=== PATIENT | female | born 1960 | race Two or more races ===

== ENCOUNTER 2016-12-26 12:02 | Emergency (ER) | payer OTHER ==
[2016-12-26 12:23] VITALS: BP 152/86; PULSE 90; TEMP 98.2; BMI 29.7
[2016-12-26] MEDS ORDERED: IBUPROFEN 400 MG TABLET (FP) PO ONE ×2 (14:01→14:02)
[2016-12-26] MEDS ORDERED: AMOX TR/POT CLAV 875MG/125MG TABLETS (FP) PO ONE (14:12)
--- NOTE | 2016-12-26 14:12 | PDOC ---
[id number] 4d RT EAR PAIN, HEADACHES Time Seen by Provider: 12/26/16 13:53 - History of Present Illness Initial Comments: 12/26/16 14:01 CHIEF COMPLAINT: ear/jaw pain HISTORY OF PRESENT ILLNESS: 56 yo F with hx of gastritis presents to fast track with R ear/jaw pain x 2 days. Patient denies fever, chills, nausea, vomiting, diarrhea. PAST MEDICAL HISTORY: Denies past medical history FAMILY HISTORY: Denies SOCIAL HISTORY:Denies tobacco, alcohol, illicit drug use. SURGICAL HISTORY: Denies ALLERGIES: No known drug allergies REVIEW OF SYSTEMS General/Constitutional: Denies fever or chills. Denies weakness, weight change. HEENT: Right ear pain. Denies change in vision. Denies discharge. Denies sore throat. Cardiovascular: Denies chest pain or shortness of breath. Respiratory: Denies cough, wheezing, or hemoptysis. Gastrointestinal: Denies nausea, vomiting, diarrhea or constipation. Denies rectal bleeding. Genitourinary: Denies dysuria, frequency, or change in urination. Musculoskeletal: Denies joint or muscle swelling or pain. Denies neck or back pain. Skin and breasts: Denies rash or easy bruising. Neurologic: Denies headache, vertigo, loss of consciousness, or loss of sensation. PHYSICAL EXAM General Appearance: Well-appearing, appropriately dressed. No apparent distress , no intoxication. HEENT: Markedly tender and edematous R auditory canal, TM not visualized. Tenderness posterior to R ear and to R mastoid. No uvular or tonsilar swelling. EOMI, PERRLA, normal ENT inspection, normal voice, TMs normal, pharynx normal. No conjunctival pallor. No photophobia, scleral icterus. Neck: Anterior cervical lymphandenopathy. Supple. Trachea midline. No tenderness, rigidity, carotid bruit, stridor. Respiratory/Chest: Lungs CTAB. Cardiovascular: RRR. S1, S2. Musculoskeletal/Extremities: Normal inspection. FROM of all extremities, normal capillary refill. Pelvis Stable. No CVA tenderness. No tenderness to extremities, pedal edema, swelling, erythema or deformity. Integumentary: Appropriate color, dry, warm. No cyanosis, erythema, jaundice or rash Neurologic: therapeutic recreation leader II-XII intact. Fully oriented, alert. Appropriate mood/affect. Motor strength 5/5. No appreciable EOM palsy, facial droop or sensory deficit. Past History - Past Medical History Allergies/Adverse Reactions: Allergies Allergy/AdvReac Type Severity Reaction Status Date / Time No Known Allergies Allergy Verified 12/26/16 12:20 Home Medications: Ambulatory Orders Amoxicillin/Potassium Clav [Augmentin 875-125 Tablet] 1 each PO BID #20 tablet 12/26/16 Ibuprofen 800 mg PO TID PRN #15 tablet 12/26/16 GI Disorders: Yes (gerd) Other medical history: ARTHRITIS - Psycho/Social/Smoking Cessation Hx Anxiety: No Suicidal Ideation: No Smoking Status: Yes Smoking History: Former smoker Have you smoked in the past 12 months: No Number of Cigarettes Smoked Daily: 0 If you are a former smoker, when did you quit?: 1999 Information on smoking cessation initiated: No Hx Alcohol Use: No Drug/Substance Use Hx: No Substance Use Type: None *Physical Exam - Vital Signs Last Vital Signs Temp Pulse Resp BP Pulse Ox 98.2 F 90 20 152/86 96 12/26/16 12:20 12/26/16 12:20 12/26/16 12:20 12/26/16 12:20 12/26/16 12:20 Medical Decision Making - Medical Decision Making 12/26/16 14:05 56 yo F with hx of gastritis presents to fast track with R ear/jaw pain x 2 days. Clinical presentation concerning of mastoiditis. Patient is afebrile and has not reported any fever. No fluctuance or crepitus to affected region, swollen R anterior cervical lymph nodes with edematous R auditory canal. -800 mg ibuprofen po Augmentin rx sent to pharm. Advised patient to take medications as prescribed and follow up with primary care doctor in TWO days. Advised patient of signs and symptoms for return to ER ; patient verbalized understanding and agrees to plan. *DC/Admit/Observation/Transfer Diagnosis at time of Disposition: Mastoiditis of right side Otitis media Qualifiers: Otitis media type: other nonsuppurative Laterality: right Chronicity: acute Recurrence: not specified Qualified Code(s): H65.191 - Other acute nonsuppurative otitis media, right ear - Discharge Dispostion Disposition: HOME Condition at time of disposition: Stable Admit: No - Prescriptions Prescriptions: Amoxicillin/Potassium Clav [Augmentin 875-125 Tablet] 1 each PO BID #20 tablet Ibuprofen 800 mg PO TID PRN #15 tablet PRN Reason: Pain - Referrals Referrals: Leon Franco MD [Primary Care Provider] - - Patient Instructions Printed Discharge Instructions: DI for Mastoiditis-Adult, Middle Ear Infection Additional Instructions: Please take medications as prescribed and follow up with your primary care doctor in TWO days. If you experience fever, nausea, vomiting, diarrhea, headache, difficulty swallowing, speaking, or breathing or have any new or worsening symptoms, please return to the ER immediatley.
[2016-12-26] MEDS ORDERED: AMOX TR/POT CLAV 875MG/125MG TABLETS (FP) ONE (14:18)
== END 2016-12-26 14:36 | disposition home or self-care (01) ==
LOC: JERFT 12:02
DX: H70.891 Other mastoiditis and related conditions, right ear (principal); H65.191 Other acute nonsuppurative otitis media, right ear
CPT/HCPCS: 99281-25

== ENCOUNTER 2017-06-18 12:19 | Emergency (ER) | payer OTHER ==
[2017-06-18 12:34] VITALS: BP 138/80; PULSE 90; TEMP 97.9; BMI 31.8
[2017-06-18] MEDS ORDERED: diphenhydrAMINE HCL 25 MG CAPSULE (FP) PO ONE ×2 (13:29→13:34)
--- NOTE | 2017-06-18 13:29 | PDOC ---
History of Present Illness - General Chief Complaint: Bite Stated Complaint: BITE Time Seen by Provider: 06/18/17 13:11 History Source: Patient Exam Limitations: No Limitations - History of Present Illness Initial Comments: 06/18/17 13:36 Chief complaint:rash to rt. hand, rt upper arm, rt. foot, chest, rt. anterior lower leg very itchy History of Present Illness: She is a 57-year-old female with a history of GERD and hyperlipidemia here today with a rash that is pruritic on her right hand and right foot right lower leg chest and right upper arm since going fishing with her 2 weeks ago. Patient reports that he also has a rash since that day and was he was told that he had poison sumac. Patient denies any difficulty breathing or swallowing. Timing/Duration: getting worse (for 2 weeks ) Severity: moderate Associated Symptoms: reports: rash (pruritic rash rt. arm, hand, rt. leg, chest) Past History - Past Medical History Allergies/Adverse Reactions: Allergies Allergy/AdvReac Type Severity Reaction Status Date / Time No Known Allergies Allergy Verified 06/18/17 12:31 Home Medications: Ambulatory Orders Amoxicillin/Potassium Clav [Augmentin 875-125 Tablet] 1 each PO BID #20 tablet 12/26/16 Ibuprofen 800 mg PO TID PRN #15 tablet 12/26/16 GI Disorders: Yes (gerd) Hypercholesterolemia: Yes - Immunization History Immunization Up to Date: Yes - Psycho/Social/Smoking Cessation Hx Anxiety: No Suicidal Ideation: No Smoking Status: Yes Smoking History: Former smoker Have you smoked in the past 12 months: No Number of Cigarettes Smoked Daily: 0 If you are a former smoker, when did you quit?: 1999 Information on smoking cessation initiated: No Hx Alcohol Use: No Drug/Substance Use Hx: No Substance Use Type: None Review of Systems - Review of Systems Able to Perform ROS?: Yes Constitutional: No: Symptoms Reported HEENTM: No: Symptoms Reported Respiratory: No: Symptoms reported Cardiac (ROS): No: Symptoms Reported ABD/GI: No: Symptoms Reported : No: Symptoms Reported Musculoskeletal: No: Symptoms Reported Integumentary: Yes: Pruritus, Rash (rt. upper arm 2 areas of erythema, rt. hand , rt. foot, chest, rt. anterior lower leg with crusted weeping area ) Neurological: No: Symptoms reported *Physical Exam - Vital Signs Last Vital Signs Temp Pulse Resp BP Pulse Ox 97.9 F 90 16 138/80 97 06/18/17 12:30 06/18/17 12:30 06/18/17 12:30 06/18/17 12:30 06/18/17 12:30 - Physical Exam General Appearance: Yes: Appropriately Dressed Respiratory/Chest: positive: Lungs Clear, Normal Breath Sounds. negative: Chest Tender, Respiratory Distress Cardiovascular: positive: Regular Rhythm, Regular Rate, S1, S2 Integumentary: positive: Rash (areas of erythema, rt. hand, rt. foot, chest, rt. anterior lower leg with crusted weeping area in center non linear) Neurologic: positive: Alert, Normal Response, Responsive Medical Decision Making - Medical Decision Making 06/18/17 13:40 She is a 57-year-old female with a history of GERD and hyperlipidemia here today with a rash that is pruritic on her right hand and right foot right lower leg chest and right upper arm since going fishing with her 2 weeks ago. Patient reports that he also has a rash since that day and was he was told that he had poison sumac. Patient denies any difficulty breathing or swallowing. Poison [place] rash PLAN: benadryl 25 mg po now than as directed by warp drawer kenalog 40 mg IM now *DC/Admit/Observation/Transfer Diagnosis at time of Disposition: Poison sumac - Discharge Dispostion Disposition: HOME Condition at time of disposition: Stable - Referrals Referrals: Leon Franco MD [Primary Care Provider] - Jayesh Apple [Non Staff, Medical] - - Patient Instructions Additional Instructions: You may apply calamine lotion to rash Follow-up with airplane cleaner Dr. Apple Take Benadryl as needed as directed by warp drawer for itchiness Return to emergency room if any difficulty breathing or swallowing Patient voiced understanding of discharge instructions and all questions were answered
[2017-06-18] MEDS ORDERED: TRIAMCINOLONE ACET 40MG/1ML VIAL IM ONE (13:32)
[2017-06-18] MEDS ORDERED: TRIAMCINOLONE ACET 40MG/1ML VIAL ONE (13:34)
== END 2017-06-18 13:56 | disposition home or self-care (01) ==
LOC: JERFT 12:19
PROC: 3E0233Z Introduction of Anti-inflammatory into Muscle, Percutaneous Approach (ICD-10-PCS; principal; 2017-06-18)
DX: L23.7 Allergic contact dermatitis due to plants, except food (principal); K21.9 Gastro-esophageal reflux disease without esophagitis; E78.5 Hyperlipidemia, unspecified
CPT/HCPCS: 96372; 99281-25

== ENCOUNTER 2018-02-24 12:07 | Emergency (ER) | payer OTHER ==
[2018-02-24 12:22] VITALS: BP 152/80; PULSE 80; TEMP 98.2; BMI 33.6
[2018-02-24] MEDS ORDERED: KETOROLAC TROMETHAMINE 60 MG/2 ML VIAL IM ONE (13:02)
[2018-02-24] MEDS ORDERED: KETOROLAC TROMETHAMINE 60 MG/2 ML VIAL ONE (13:05)
--- NOTE | 2018-02-24 13:05 | PDOC ---
History of Present Illness - General Chief Complaint: Back Pain Stated Complaint: BACK PAIN Time Seen by Provider: 02/24/18 12:54 History Source: Patient Exam Limitations: No Limitations - History of Present Illness Initial Comments: 02/24/18 13:03 CHIEF COMPLAINT: [Lower back pain] HISTORY OF PRESENT ILLNESS: 57-year-old female, no significant medical history currently on no medication presents for generalized lower back pain. Pain started after carrying groceries up the steps. Denies any,. Attempted to take Tylenol and one Aleve with no resolved.,[ Nonradiating pain, no neurosensory deficits, no bowel or bladder difficulty incontinence or urinary retention, no saddle anesthesia, no footdrop. No history of IVDU or history of cancer. ] REVIEW OF SYSTEMS: GENERAL: Afebrile, denies any weakness RESPIRATORY: No cough, wheezing, or hemoptysis. CARDIAC: No chest pain or shortness of breath MUSCULOSKELETAL: Pain to generalized lower back. No point tenderness. Pain worse on [right than left. ] SKIN : No erythema, no bruising, no deformity. GI/: Denies any abdominal pain, no urinary difficulty, incontinence or urinary retention. RECTAL: Denies any difficulty this A.m. NEUROLOGICAL: Denies any numbness or tingling. No neurosensory deficits. PHYSICAL EXAM: GENERAL: The patient is awake, alert, and fully oriented, in no acute distress. RESPIRATORY: Lungs clear bilaterally, no rhonchi wheezes or crackles CARDIAC: S1-S2 audible, no murmur rub or gallop MUSCULOSKELETAL: Pain to generalized lower back, nonradiating, no tingling or sensory deficit. Less than 2 second cap refill, +4 popliteal and pedal pulses. No CVA tenderness. GI/: Abdomen soft, nontender, nondistended. No rebound tenderness. No masses palpable. MUSCULOSKELETAL: No spinal point tenderness. Normal reflexive and no deficits to sensation or strength. RECTAL: [Deferred patient with no neurological findings] SKIN: Warm, Dry, normal turgor, no erythema, no edema no bruising. Past History - Past Medical History Allergies/Adverse Reactions: Allergies Allergy/AdvReac Type Severity Reaction Status Date / Time No Known Allergies Allergy Verified 02/24/18 12:15 Home Medications: Ambulatory Orders Cyclobenzaprine HCl [Flexeril 10 mg] 10 mg PO BID PRN #20 tablet 04/08/18 Naproxen [Naprosyn -] 500 mg PO BID #20 tablet 02/24/18 COPD: No GI Disorders: Yes (gerd) Hypercholesterolemia: Yes Other medical history: pinched nerve on back - Immunization History Immunization Up to Date: Yes - Suicide/Smoking/Psychosocial Hx Smoking Status: Yes Smoking History: Former smoker Have you smoked in the past 12 months: No Number of Cigarettes Smoked Daily: 0 If you are a former smoker, when did you quit?: 2009 Information on smoking cessation initiated: No Hx Alcohol Use: No Drug/Substance Use Hx: No Substance Use Type: None *Physical Exam - Vital Signs Last Vital Signs Temp Pulse Resp BP Pulse Ox 98.2 F 80 18 152/80 97 02/24/18 12:13 02/24/18 12:13 02/24/18 12:13 02/24/18 12:13 02/24/18 12:13 Medical Decision Making - Medical Decision Making 02/24/18 13:05 A/P: Patient with generalized lower back pain will send urinalysis, Toradol 60 mg IM times one. She reports relief of pain after Toradol will DC on anti-inflammatories, follow- up with orthopedics pain persists no heavy lifting greater than 10 pounds. *DC/Admit/Observation/Transfer Diagnosis at time of Disposition: Low back pain Qualifiers: Chronicity: acute Back pain laterality: bilateral Sciatica presence: without sciatica Qualified Code(s): M54.5 - Low back pain - Discharge Dispostion Disposition: HOME Condition at time of disposition: Stable Admit: No - Prescriptions Prescriptions: Cyclobenzaprine HCl [Flexeril 10 mg] 10 mg PO BID PRN #20 tablet PRN Reason: Pain Naproxen [Naprosyn -] 500 mg PO BID #20 tablet - Referrals Referrals: Desmond Brooks MD [Staff Physician] - - Patient Instructions Printed Discharge Instructions: DI for Low Back Pain Additional Instructions: 1. Please return to the emergency department with any numbness, tingling, weakness, numbness or tingling to groin or legs, or loss of bowel or bladder function. 2. Use pain medication as ordered. 3. Please is to followup in the office of Dr. Brooks for evaluation within a week if no improvement. 4. Ice or heat 5. Refrain from lifting anything above 10 pounds, until pain resolved. - Post Discharge Activity Forms/Work/School Notes: Back to Work
[2018-02-24 13:29] LABS: URINE APPEARANCE CLEAR; URINE BILIRUBIN NEGATIVE (<2.0 mg/dL); URINE BLOOD NEGATIVE (NEGATIVE); URINE COLOR YELLOW; URINE GLUCOSE (UA) NEGATIVE (NEGATIVE); URINE KETONE NEGATIVE (NEGATIVE); URINE LEUK ESTERASE NEGATIVE (NEGATIVE); URINE NITRITE NEGATIVE (NEGATIVE); URINE PROTEIN NEGATIVE (NEGATIVE); URINE UROBILINOGEN NEGATIVE mg/dL (0.2-1.0)
== END 2018-02-24 14:11 | disposition home or self-care (01) ==
LOC: JERFT 12:07
PROC: 3E0233Z Introduction of Anti-inflammatory into Muscle, Percutaneous Approach (ICD-10-PCS; principal; 2018-02-24)
DX: M54.5 Low back pain (principal); X50.0XXA Overexertion from strenuous movement or load, initial encounter; Y93.89 Activity, other specified; Y92.89 Other specified places as the place of occurrence of the external cause; Y99.8 Other external cause status; E78.00 Pure hypercholesterolemia, unspecified; Z87.19 Personal history of other diseases of the digestive system
CPT/HCPCS: 81003; 96372; 99281-25

== ENCOUNTER 2021-08-01 21:56 | Emergency (ER) | payer OTHER ==
[2021-08-01 22:00] VITALS: BP 156/87; PULSE 77; TEMP 98.5; BMI 31.5
[2021-08-01] MEDS ORDERED: ACETAMINOPHEN 325 MG TABLET (FP) PO ONE (22:57)
[2021-08-01] MEDS ORDERED: LIDOCAINE 5% TOPICAL PATCH TP ONE (22:57)
[2021-08-01] MEDS ORDERED: LIDOCAINE 5% TOPICAL PATCH ONE (23:06)
[2021-08-01] MEDS ORDERED: ACETAMINOPHEN 325 MG TABLET (FP) ONE (23:07)
[2021-08-01 23:14] LABS: EOS % 1.4 % (0-4.5); HEMATOCRIT 39.9 % (32.4-45.2); HEMOGLOBIN 13.8 GM/dL (10.7-15.3); LYMPH % 40.4 % (8-40); MCH 27.4 pg (25.7-33.7); MCHC 34.5 g/dl (32.0-36.0); MEAN CELL VOLUME 79.3 fl (80-96); MEAN PLT VOLUME 7.7 fl (7.5-11.1); MONO % 6.9 % (3.8-10.2); NEUT % 50.3 % (42.8-82.8); PLATELET COUNT 277 10^3/uL (134-434); RBC 5.03 M/mm3 (3.60-5.2); RDW 13.5 % (11.6-15.6); WHITE BLOOD COUNT 10.9 K/mm3 (4.0-10.0)
[2021-08-01 23:34] LABS: CHLORIDE 105 mmol/L (98-107); SODIUM 138 mmol/L (136-145)
[2021-08-01 23:39] LABS: ALBUMIN 3.5 g/dl (3.4-5.0); ANION GAP 5 MMOL/L (8-16); BLOOD UREA NITROGEN 14.6 mg/dL (7-18); CO2 28 mmol/L (21-32); GLUCOSE,RANDOM 208 mg/dL (74-106)
[2021-08-01 23:42] LABS: CREATININE 0.6 mg/dL (0.55-1.3); SGOT/AST 24 U/L (15-37); SGPT/ALT 39 U/L (13-61)
[2021-08-01 23:44] LABS: BILIRUBIN,TOTAL 0.3 mg/dL (0.2-1); TOT PROT 7.7 g/dl (6.4-8.2)
[2021-08-01 23:45] LABS: ALK PHOS 130 U/L (45-117)
[2021-08-02] MEDS ORDERED: LIDOCAINE PATCH REMOVAL MC SCH (11:00)
== END 2021-08-02 00:33 | disposition home or self-care (01) ==
LOC: JER 21:56
DX: R42 Dizziness and giddiness (principal); E11.9 Type 2 diabetes mellitus without complications
CPT/HCPCS: 36415; 80053; 82962; 84484; 85025; 93005; 93010; 99284-25

== ENCOUNTER 2023-05-11 10:47 | Emergency (ER) | payer OTHER ==
[2023-05-11 10:56] VITALS: BP 116/77; PULSE 80; RESP 20; TEMP 98.3; BMI 30.4
[2023-05-11] MEDS ORDERED: DEXAMETHASONE SOD PHOSPHATE 20 MG/5 ML VIAL IVPB ONE (12:01)
[2023-05-11] MEDS ORDERED: SODIUM CHLORIDE 0.9% 1000 ML INFUS.BAG IV ONE (12:02)
[2023-05-11] MEDS ORDERED: DEXAMETHASONE SOD PHOSPHATE 10 MG/1 ML VIAL ONE ×2 (12:08→12:11)
== END 2023-05-11 14:30 | disposition home or self-care (01) ==
LOC: JER 10:47
PROC: 3E033NZ Introduction of Analgesics, Hypnotics, Sedatives into Peripheral Vein, Percutaneous Approach (ICD-10-PCS; principal; 2023-05-11)
PROC: 3E033GC Introduction of Other Therapeutic Substance into Peripheral Vein, Percutaneous Approach (ICD-10-PCS; 2023-05-11)
DX: S90.561A Insect bite (nonvenomous), right ankle, initial encounter (principal); T78.40XA Allergy, unspecified, initial encounter; R21 Rash and other nonspecific skin eruption; W57.XXXA Bitten or stung by nonvenomous insect and other nonvenomous arthropods, initial encounter
CPT/HCPCS: 99284-25

== ENCOUNTER 2023-12-10 10:40 | Emergency (ER) | payer OTHER ==
[2023-12-10 10:56] VITALS: BP 134/68; PULSE 84; RESP 18; TEMP 98.8; BMI 27.8
== END 2023-12-10 12:29 | disposition home or self-care (01) ==
LOC: JER 10:40 → JERFT 10:40
DX: R05.9 Cough, unspecified (principal); R09.81 Nasal congestion; J06.9 Acute upper respiratory infection, unspecified; U07.1 COVID-19
CPT/HCPCS: 0241U-QW; 99283-25